=== PATIENT | male | born 1960 | race Caucasian/White ===

== ENCOUNTER 2019-03-21 12:59 | Emergency (ER) | payer OTHER ==
[~2019-03-21] VITALS: Ht 188 cm; Wt 108.9 kg
--- NOTE | 2019-03-21 20:00 | EKG ---
[facility] [address] [facility] [facility] [place], [place] [address] Signed Normal sinus rhythm Low voltage QRS Septal infarct , age undetermined Abnormal ECG No previous ECGs available Confirmed by SINDI LE MD ([id number] on 03/21/2019 8:00:31 PM Electronically Signed By: SINDI LE MD 03/21/19 2000 PATIENT NAME: DEMETRIO CORMIER Electrocardiogram DATE OF : 62 PHYSICIAN: SINDI LE MD REPORT #: [id number] REPORT IS CONFIDENTIAL AND NOT TO BE RELEASED WITHOUT AUTHORIZATION
== END 2019-03-21 15:50 | disposition short-term general hospital (02) ==
LOC: ED 12:59
DX: I63.9 Cerebral infarction, unspecified (principal)
CPT/HCPCS: 70450; 70496; 70498; 71045; 80053; 84484; 85025; 85610; 85730; 93005; 93010; 99285-25; J2997; Q9967

== ENCOUNTER 2021-03-14 01:01 | Emergency (ER) | payer MEDICAID ==
[~2021-03-14] VITALS: Ht 188 cm; Wt 109.0 kg
[2021-03-14] MEDS ORDERED: CLOTRIMAZOLE-BE15 GM TOP (02:05)
== END 2021-03-14 02:17 | disposition home or self-care (01) ==
LOC: ED 01:01
DX: L25.9 Unspecified contact dermatitis, unspecified cause (principal); Z85.820 Personal history of malignant melanoma of skin
CPT/HCPCS: 99282